=== PATIENT | female | born 1960 | race Caucasian/White ===

== ENCOUNTER → 2019-07-08 | Outpatient (CLI) | payer BC | LOC: OD 15:41 | PROVIDERS: ATTEND Otolaryngology | DX: J30.9 Allergic rhinitis, unspecified (principal) | CPT/HCPCS: 36415; 82785; 86003 ==

== ENCOUNTER → 2019-08-12 | Outpatient (CLI) | payer BC | LOC: RAD 09:53 | PROVIDERS: ATTEND Otolaryngology | DX: R09.81 Nasal congestion (principal) | CPT/HCPCS: 70486 ==